=== PATIENT | female | born 1955 | race Caucasian/White ===

== ENCOUNTER → 2019-05-20 | Outpatient (CLI) | payer MEDICARE, OTHER ==
--- NOTE | 2019-05-20 09:12 | Diagnostic Imaging Report ---
Exam: KUB - 2 views Indication: Urinary tract infection Comparison: None Findings: Nonobstructive bowel gas pattern. No evidence of free intraperitoneal air. No evidence of abnormal calcification. No acute bony abnormality. Impression: No radiographically apparent renal calculi. Signed by: Deborah Miguel MD on 05/20/2019 9:09 AM
--- NOTE | 2019-05-20 11:24 | Diagnostic Imaging Report ---
EXAM: Renal Ultrasound INDICATION: ^[id number] ^[id number] ^CYST OF KIDNEY / URINARY TRACT INFECTION COMPARISON: None TECHNIQUE: Transverse and longitudinal images of the kidneys and bladder were obtained. FINDINGS: Right Kidney: Length: 11.5 cm Appearance: Normal echogenicity. Collecting system: No hydronephrosis Stones: None Cyst/Mass: Lower pole anechoic simple cyst measures 3.0 x 2.5 x 3.0 cm. Left Kidney: Length: 12.0 cm Appearance: Normal echogenicity. Collecting system: No hydronephrosis Stones: None Cyst/Mass: None Bladder: No mass or calculi. Bilateral ureteral jets visualized. Prevoid volume estimate of 79.6 cc. IMPRESSION: No hydronephrosis or renal calculi. Right lower pole simple cyst. Signed by: Deborah Miguel MD on 05/20/2019 11:20 AM
--- NOTE | 2019-05-20 11:26 | Diagnostic Imaging Report ---
EXAM: US ABDOMEN COMPLETE DATE: 05/20/2019 8:15 AM INDICATION: Right upper quadrant pain COMPARISON: Multiple prior renal ultrasounds, most recently 05/20/2019. Abdominal ultrasound 12/15/2013 TECHNIQUE: Transverse and longitudinal fontenot scale and color doppler sonographic images of the upper abdomen were obtained. FINDINGS: There is no evidence of fluid or masses seen in the area of clinical concern in the right lower quadrant. LIVER 14.7 cm in the right midclavicular line. Mildly increased echogenicity of the liver with normal contour, no masses. SPLEEN 7.8 cm in maximum diameter. Normal echogenicity, no masses. GALLBLADDER No gallbladder wall thickening, distension, stone, or pericholecystic fluid. NEgative reported sonographic Garcia's sign. Gallbladder wall measures 2 mm BILE DUCTS No intra nor extra-hepatic biliary dilation. Common bile duct measures 3 mm PANCREAS: Visualized portions are normal. RIGHT KIDNEY: 11.6 cm Echogenicity: Normal Collecting System: No hydronephrosis Stones: None Cyst/Mass: Lower pole anechoic simple cyst measures up to 3.1 cm. LEFT KIDNEY: 12.0 cm Echogenicity: Normal Collecting System: No hydronephrosis Stones: None Cyst/Mass: None VESSELS: Aorta: Visualized portions are within normal size limits Inferior Vena Cava: Visualized portions are normal Main Portal Vein: 1.0 cm, normal size with hepatopetal flow. FREE FLUID: None IMPRESSION: No sonographic evidence of cholelithiasis or cholecystitis. Mild hepatic steatosis. No hydronephrosis or renal calculi. Right lower pole simple renal cyst. Signed by: Deborah Miguel MD on 05/20/2019 11:23 AM
== END ==
LOC: US 08:06
PROVIDERS: ATTEND Urology
DX: N39.0 Urinary tract infection, site not specified (principal); N28.1 Cyst of kidney, acquired
CPT/HCPCS: 74018; 76700; 76770